=== PATIENT | female | born 1940 | race Caucasian/White ===

== ENCOUNTER 2017-08-07 23:48 | Inpatient (IN) | payer OTHER ==
[~2017-08-07] VITALS: Ht 157.5 cm; Wt 81.1 kg
[~2017-08-07 23:48] MED LIST: ACETAMINOPHEN325 M1 PO; ALTOPREV40 MG PO; APAP500 PO; APAP650 PO; CALCIUM 600 +1 EAC5 PO; COLACE 100 MG100 MG PO; ESTRACE0.5 MG PO; GLIPIZIDE ER5 MG PO; GLUCOPHAGE1000 MG PO; GLUCOSAMINE HC500 MG PO; GLUCOTROL5 MG PO; HYDROCHLOROTHIA25 M2 PO; HYDROXYCHLOROQ200 M1 PO; INTEGRA; INTEGRA CAPSUL1 EACH PO; IRON SULFATE PO; IRON325 PO; Integra PO; LIPITOR10 MG PO; LISINOPRIL20 MG PO; LOVASTAT40 PO; MULTIVITAMIN W1 EAC5 PO; MULTIVITAMINS PO; PRILOSEC 20 MG20 MG PO; PRINIVIL20 MG PO; PRINZIDE 20-121 EACH PO; PROTONIX40 M2 PO; STOOL SOFTENER100 MG PO; VITAMIN B-12100 MC1; VITAMIN D3400 UNIT; ZESTORETIC 20-1 EAC3 PO; ZESTORETIC 20-1 EACH PO; [UNRECOGNIZED DRUG - OTHER] PO
[2017-08-07 23:57] VITALS: BP 126/59
[2017-08-08 00:20] LABS: URINE BLOOD NEGATIVE (Negative); URINE CLARITY CLEAR; URINE COLOR YELLOW; URINE GLUCOSE-RANDOM NEGATIVE (Negative); URINE KETONES NEGATIVE (Negative); URINE LEUKOCYTES-REFLEX NEGATIVE (Negative); URINE NITRITE-REFLEX NEGATIVE (Negative); URINE PROTEIN 1+ (Negative); URINE SPECIFIC GRAVITY >= 1.030 (1.005-1.030); URINE UROBILINOGEN 0.2 E.U./dl (0.2-1.0)
[2017-08-08 00:24] LABS: ICTOTEST (BILI CONFIRMATORY) Negative (Negative); URINE BILIRUBIN 1+ (Negative)
[2017-08-08 00:24] LABS: ABSOLUTE LYMPHOCYTES 0.8 thou/uL (0.8-5.3); BASOPHILS 0.5 %; HEMOGLOBIN 13.1 gm/dL (12.0-15.0); POLYS 80.8 %
[2017-08-08 00:28] LABS: ABSOLUTE MONOCYTES 0.3 thou/uL (0.0-1.2); EOSINOPHILS 0.7 %; HEMATOCRIT 40.4 % (37.0-47.0); LYMPHOCYTES 12.5 %; MCH 27.4 pg (26.0-34.0); MCHC 32.4 g/dL (28.0-37.0); MCV 84.8 fL (80.0-100.0); MONOCYTES 5.5 %; MPV 8.7 fl. (7.2-11.1); NUCLEATED RBCS 0 /100WBC; PLATELET COUNT* 218 thou/uL (150-400); RBC 4.77 mil/uL (4.20-5.00); RDW-CV 15.2 % (10.5-14.5); WBC 6.2 thou/uL (4.0-11.0)
[2017-08-08 00:32] LABS: CALCIUM 10.5 mg/dL (8.5-10.1); CREATININE 1.7 mg/dL (0.6-1.3)
[2017-08-08 00:37] LABS: ALBUMIN 4.2 g/dL (3.4-5.0); TOTAL BILIRUBIN 0.4 mg/dL (<0.1-1.0); TOTAL PROTEIN 7.9 g/dL (6.4-8.2)
[2017-08-08] MEDS ORDERED: HYDROXYCHLOROQ200 M1 PO (01:11)
[2017-08-08] MEDS ORDERED: GLUCOTROL5 MG PO (01:14)
[2017-08-08] MEDS ORDERED: ZESTORETIC 20-1 EAC3 PO (01:15)
[2017-08-08] MEDS ORDERED: IRON325 PO (01:16)
[2017-08-08] MEDS ORDERED: VITAMIN D1000 UNI1 PO (01:17)
[2017-08-08 03:35] VITALS: BP 113/51
[2017-08-08 03:45] VITALS: BP 133/62
--- NOTE | 2017-08-08 07:33 | NUR ---
Admit at 0340. She is alert and oriented x 4. She has partial small obstruction. NG to LIS in L nares. She did have vomiting and nausea in ED but hasn't since arrival to floor. She did have pain med x 1 at 0503 and she has slept since then.
[2017-08-08 08:09] VITALS: BP 101/60
--- NOTE | 2017-08-08 16:35 | NUR ---
ASSUMED CARE OF PATIENT AFTER MORNING REPORT. ALERT AND ORIENTED X4. ASSESSMENT COMPLETED AND CHARTED. VSS ON ROOM AIR. PATIENT HAS HAD NO COMPLAINTS OF PAIN OR NAUSEA THIS SHIFT. NG TUBE REMIANS IN PLACE ON INTERMITTENT SUCTION. FLUIDS INFUSING ORDERED. HOURLY ROUNDS HAVE BEEN MAINTAINED. CALL LIGHT IS WITHIN REACH. NURSING WILL CONTINUE TO MONITOR.
[2017-08-08 20:00] VITALS: BP 142/75
[2017-08-09 04:52] LABS: ABSOLUTE EOSINOPHILS 0.2 thou/uL (0.0-0.7); ABSOLUTE LYMPHOCYTES 0.7 thou/uL (0.8-5.3); ABSOLUTE MONOCYTES 0.4 thou/uL (0.0-1.2); ABSOLUTE NEUTROPHILS 2.6 thou/uL (1.6-8.1); BASOPHILS 0.4 %; HEMATOCRIT 33.5 % (37.0-47.0); LYMPHOCYTES 17.3 %; MCH 27.1 pg (26.0-34.0); MCHC 31.9 g/dL (28.0-37.0); MCV 84.9 fL (80.0-100.0); MONOCYTES 11.1 %; MPV 8.3 fl. (7.2-11.1); NUCLEATED RBCS 0 /100WBC; PLATELET COUNT* 153 thou/uL (150-400); POLYS 67.2 %; RBC 3.95 mil/uL (4.20-5.00); RDW-CV 14.8 % (10.5-14.5); WBC 3.8 thou/uL (4.0-11.0)
[2017-08-09 04:55] LABS: HEMOGLOBIN 10.7 gm/dL (12.0-15.0)
[2017-08-09 04:59] LABS: CALCIUM 9.3 mg/dL (8.5-10.1); CREATININE 1.2 mg/dL (0.6-1.3); TOTAL BILIRUBIN 0.4 mg/dL (<0.1-1.0); TOTAL PROTEIN 5.9 g/dL (6.4-8.2)
--- NOTE | 2017-08-09 05:18 | NUR ---
ASSUMED PATIENT CARE AT 1900. PATIENT ALERT AND ORIENTED TIMES FOUR. NG IN PLACE TO INTERMITTENT SUCTION. STATES THAT SHE "FEELS SO MUCH BETTER NOW" NO COMPLAINTS OF NAUSEA THROUGH SHIFT. IV PATENT AND FLUIDS INFUSING. REMAINS NPO STATUS. ABLE TO AMBULATE WITH STB ASSISST TO THE BSC. 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
[2017-08-09 08:30] VITALS: BP 132/51
--- NOTE | 2017-08-09 15:23 | NUR ---
CM SPOKE TO THE PATIENT TO DISCUSS HOME SITUATION, DISHCARGE PLANNING, AND TO INFORM OF THE ROLE OF CM. PATIENT ALERT, ORIENTED, AND INDEPENDENT WITH ADL'S. PATIENT DRIVES. PATIENT RESIDES AT HOME WITH AND GRANDSON. DENISE OWNS 0 DME. PATIENT HAS NO HX OF HH OR SNF. PATIENT PLANS TO RETURN HOEM AT D/C. CM WILL REMAIN AVAILABLE TO ASSIST AND FOLLOW NEEDED.
--- NOTE | 2017-08-09 18:15 | NUR ---
PATIENT REMAINED ALERT AND ORIENTED X'S 4. VITAL SIGNS AND SPO2 STABLE. IV CLEAN, FLUIDS INFUSING. REMAINED NPO. NURSE DID CLAMP OF NG TUBING TO GIVE PATIENT MORNING PO MEDS. PATIENT TOLERATED WITHOUT NAUSEA AND VOMITING. VOIDED WITHOUT ISSUE. BLOOD SUGARS WELL CONTROLLED WITH BG MEDS. COMPLETED HOURLY ROUNDING. CALL LIGHT WITHIN REACH. WILL CONTINUE TO MONITOR.
[2017-08-09 18:29] VITALS: BP 127/56
[2017-08-09 20:00] VITALS: BP 144/69
--- NOTE | 2017-08-10 04:06 | NUR ---
PATIENT RESTING QUIETLY ON HOURLY ROUNDS. DENIES PAIN OR NAUSEA. NG PATENT TO LIS. RILEYO. VITALS STABLE ON ROOM AIR. VOIDING ADEQUATELY PER BSC. WILL CONTINUE TO MONITOR.
[2017-08-10 04:19] LABS: ABSOLUTE EOSINOPHILS 0.1 thou/uL (0.0-0.7); ABSOLUTE LYMPHOCYTES 0.6 thou/uL (0.8-5.3); ABSOLUTE MONOCYTES 0.6 thou/uL (0.0-1.2); ABSOLUTE NEUTROPHILS 3.4 thou/uL (1.6-8.1); BASOPHILS 0.4 %; EOSINOPHILS 2.1 %; HEMATOCRIT 33.5 % (37.0-47.0); HEMOGLOBIN 11.1 gm/dL (12.0-15.0); LYMPHOCYTES 13.4 %; MCH 27.8 pg (26.0-34.0); MCHC 33.1 g/dL (28.0-37.0); MCV 84.1 fL (80.0-100.0); MONOCYTES 11.7 %; MPV 8.2 fl. (7.2-11.1); NUCLEATED RBCS 0 /100WBC; PLATELET COUNT* 147 thou/uL (150-400); POLYS 72.4 %; RBC 3.98 mil/uL (4.20-5.00); RDW-CV 14.4 % (10.5-14.5); WBC 4.7 thou/uL (4.0-11.0)
[2017-08-10 04:45] LABS: CALCIUM 9.5 mg/dL (8.5-10.1); CREATININE 1.1 mg/dL (0.6-1.3); POTASSIUM 3.8 mmol/L (3.5-5.1); TOTAL BILIRUBIN 0.5 mg/dL (<0.1-1.0); TOTAL PROTEIN 5.6 g/dL (6.4-8.2)
[2017-08-10 08:15] VITALS: BP 137/74
[2017-08-10 11:26] VITALS: BP 144/62
[2017-08-10 11:55] LABS: MAGNESIUM 1.8 mg/dL (1.8-2.4); POTASSIUM 3.9 mmol/L (3.5-5.1)
[2017-08-10 15:42] VITALS: BP 129/61
[2017-08-10 23:00] VITALS: BP 144/64
[2017-08-11 05:12] LABS: ABSOLUTE EOSINOPHILS 0.1 thou/uL (0.0-0.7); ABSOLUTE LYMPHOCYTES 0.6 thou/uL (0.8-5.3); ABSOLUTE MONOCYTES 0.6 thou/uL (0.0-1.2); ABSOLUTE NEUTROPHILS 3.3 thou/uL (1.6-8.1); BASOPHILS 0.4 %; EOSINOPHILS 2.1 %; HEMATOCRIT 30.4 % (37.0-47.0); HEMOGLOBIN 10.2 gm/dL (12.0-15.0); LYMPHOCYTES 12.1 %; MCH 27.6 pg (26.0-34.0); MCHC 33.6 g/dL (28.0-37.0); MCV 82.3 fL (80.0-100.0); MONOCYTES 13.9 %; MPV 8.7 fl. (7.2-11.1); NUCLEATED RBCS 0 /100WBC; PLATELET COUNT* 134 thou/uL (150-400); POLYS 71.5 %; RBC 3.69 mil/uL (4.20-5.00); RDW-CV 13.9 % (10.5-14.5); WBC 4.6 thou/uL (4.0-11.0)
[2017-08-11 05:31] LABS: ALBUMIN 2.9 g/dL (3.4-5.0); CALCIUM 9.4 mg/dL (8.5-10.1); POTASSIUM 3.6 mmol/L (3.5-5.1); TOTAL BILIRUBIN 0.5 mg/dL (<0.1-1.0); TOTAL PROTEIN 5.4 g/dL (6.4-8.2)
--- NOTE | 2017-08-11 06:39 | NUR ---
RESTED QUIETLY THROUGHOUT NIGHT. NO C/O N/V OR PAIN. N/G CLAMPED AT THIS TIME. UP AD BINU IN ROOM TO BEDSIDE COMMODE WITHOUT DIFFICULTY. IVF INFUSING WITHOUT DIFFICULTY. REMAINS NPO AT THIS TIME. CALL LIGHT WITHIN REACH.
[2017-08-11 08:30] VITALS: BP 136/72
[2017-08-11 15:41] VITALS: BP 137/70
--- NOTE | 2017-08-11 16:24 | NUR ---
PATIENT REMAINS ALERT AND ORIENTED. DENIES PAIN OR NAUSEA. NG REMOVED TODAY. TOLERATING REGULAR DIET. AMBULATING AD BINU. BM THIS AM. VOIDING PER TOILET. CALL LIGHT WITHIN REACH. WILL CONTINUE TO MONITOR.
[2017-08-11 21:00] VITALS: BP 134/49
[2017-08-12 04:47] LABS: ABSOLUTE EOSINOPHILS 0.2 thou/uL (0.0-0.7); ABSOLUTE LYMPHOCYTES 0.6 thou/uL (0.8-5.3); ABSOLUTE MONOCYTES 0.7 thou/uL (0.0-1.2); ABSOLUTE NEUTROPHILS 2.9 thou/uL (1.6-8.1); BASOPHILS 0.4 %; EOSINOPHILS 3.9 %; HEMATOCRIT 29.7 % (37.0-47.0); HEMOGLOBIN 9.9 gm/dL (12.0-15.0); LYMPHOCYTES 13.9 %; MCH 27.5 pg (26.0-34.0); MCHC 33.4 g/dL (28.0-37.0); MCV 82.2 fL (80.0-100.0); MONOCYTES 16.1 %; MPV 8.4 fl. (7.2-11.1); NUCLEATED RBCS 0 /100WBC; PLATELET COUNT* 129 thou/uL (150-400); POLYS 65.7 %; RBC 3.62 mil/uL (4.20-5.00); RDW-CV 13.7 % (10.5-14.5); WBC 4.3 thou/uL (4.0-11.0)
--- NOTE | 2017-08-12 04:48 | NUR ---
ALERT AND ORIENTED X4. NO C/O N/V OR PAIN. UP AD BINU IN ROOM WITHOUT DIFFICULTY. EATTING CARB CONTROL DIET WITHOUT DIFFICULTY. CALL LIGHT WITHIN REACH. WILL CONTINUE TO MONITOR.
[2017-08-12 05:06] LABS: ALBUMIN 2.8 g/dL (3.4-5.0); CALCIUM 9.2 mg/dL (8.5-10.1); CREATININE 1.1 mg/dL (0.6-1.3); POTASSIUM 3.5 mmol/L (3.5-5.1); TOTAL BILIRUBIN 0.6 mg/dL (<0.1-1.0); TOTAL PROTEIN 5.4 g/dL (6.4-8.2)
[2017-08-12 08:00] VITALS: BP 117/66
[2017-08-12 09:43] VITALS: BP 117/66
[2017-08-12 12:50] VITALS: BP 117/66
[2017-08-12] MEDS ORDERED: TYLENOL325 MG PO (13:03)
[2017-08-12 14:23] VITALS: BP 117/66
--- NOTE | 2017-08-12 14:28 | NUR ---
PATIENT LEFT UNIT AT 1400. ALERT AND ORIENTED X4. UP AD BINU IN ROOM. DENIES PAIN AND NAUSEA. IV DISCONTINUED. ALL PERSONAL ITEMS LEFT WITH PATIENT. DISCHARGE INSTRUCTIONS, PRESCRIPTIONS AND NEW MEDICAION INFORMATION SENT WITH PATIENT. VITAL SIGNS STABLE ON ROOM AIR. HOURLY ROUNDS HAVE BEEN MAINTAINED THROUGHOUT SHIFT. TOLERATING CARB CONTROL DIET. LEFT WIT SPOUSE VIA CAR.
--- NOTE | 2017-08-15 14:51 | CON ---
[address] [address] CONSULTATION Name: BRUCE NELSON Room: [address] IN .R.#: [id number] Admission: 08/08/17 Attend Phys: Rios Faria Discharge: 08/12/17 Date of : 40 Report #: [id number] THIS REPORT FOR: //name// CC: Yolande Larsen DICTATED BY: Astrid Patel [facility] DATE OF SERVICE: 08/08/2017 Please note at the time of this dictation, the patient was seen and physically examined by myself. REASON FOR CONSULTATION: Small-bowel obstruction. HISTORY OF PRESENT ILLNESS: This 76-year-old female presented to the Emergency Room with chief complaint of starting to have some abdominal pain. She states earlier in the morning, she noticed a little bit of discomfort, but she was able to eat breakfast and lunch and then she even ate a little bit of dinner, but she kept noticing that her stomach just did not feel right and that she was feeling a little bit more distended. It was until around after 9:00, last evening that she started developing nausea and vomiting. She states that she denied any bright red blood or any melena from her emesis. She states she has had this happen before where she has had a small-bowel obstruction and this is exactly identical but not as bad as it has been done in the past, prompting her to come in to be seen in the Emergency Room. She had an NG tube placed around 3:00 this morning and has only had 250 mL out thus far and she is feeling significantly better. The patient underwent an EGD back in 2012 and had small hiatal hernia. She also had a colonoscopy that showed moderate sigmoid diverticulosis. She states she did have a bowel movement yesterday morning as well without any issues. ALLERGIES: ASPIRIN. MEDICATIONS: From home include vitamin D, Glucotrol, iron, Zestoretic and Plaquenil. PAST MEDICAL HISTORY: Includes history of small bowel obstructions, type 2 diabetes, hypertension, history of an AV malformation and history of blood transfusions. PAST SURGICAL HISTORY: Small bowel resections. FAMILY HISTORY: [place] [address] CONSULTATION Name: BRUCE NELSON Room: [address]#: [id number] Admission: 08/08/17 Attend Phys: Rios Faria Discharge: 08/12/17 Date of : 40 Report #: [id number] SOCIAL HISTORY: She lives with her . Denies any alcohol, tobacco or illegal drug use at this time. REVIEW OF SYSTEMS: Twelve-point review of systems is essentially negative except what is mentioned in the HPI. PHYSICAL EXAMINATION: VITAL SIGNS: Temperature 36.9, pulse 87, respirations 18, blood pressure 111/60. HEART: Regular rate and rhythm. LUNGS: Clear. ABDOMEN: Soft, nondistended. Bowel sounds are present, but slightly hypoactive in all 4 quadrants. LABORATORY DATA: Hemoglobin 13.1, hematocrit 40.4, white count is 6.2, platelets 218. Sodium 136, potassium 4, chloride 110, CO2 24, BUN is 30, creatinine 1.7, GFR is 29, glucose is 283. LFTs are all normal. CT showed diffuse fatty liver with mildly dilated small bowel loops diffusely, small bowel to 2.8 cm and fluid noted in the right colon and in the transverse with moderate distention noted with moderate stool. IMPRESSION: 1. Abdominal pain. 2. Nausea and vomiting, improved. 3. Small-bowel obstruction. PLAN: 1. NG to intermittent low suction. 2. N.p.o. 3. Abdominal x-ray in the a.m. 4. Treat conservatively and further recommendations to be made tomorrow. Thank you for allowing us to participate in this patient's care. Please do not hesitate to call with any questions in regard to this consult. ADDENDUM: I have personally seen and examined the patient and reviewed labs and imaging. 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 She also has had hernia repair in the past. She reports that she ate breakfast yesterday, but after breakfast started developing abdominal pain and distention. She was admitted with partial small-bowel obstruction. NG tube has been in place to low grade intermittent suction. The patient reports that she is feeling well. Denies any abdominal pain, nausea, and vomiting. Her abdomen is also soft. We will follow this with a KUB tomorrow. If the patient is doing [address] [place] [address] CONSULTATION Name: BRUCE NELSON Room: [address] IN [facility]#: [id number] Admission: 08/08/17 Attend Phys: Rios Faria Discharge: 08/12/17 Date of : 40 Report #: [id number] well, we may be able to pull the NG and advance diet tomorrow. The patient is agreeable with the plan. <ELECTRONICALLY SIGNED> By: Mercedes Martinez MD 08/15/17 1451 [id number] Martinez MD /nt
--- NOTE | 2017-08-15 14:51 | CON ---
[address] [address] CONSULTATION Name: BRUCE NELSON Room: [address] IN .R.#: [id number] Admission: 08/08/17 Attend Phys: Rios Faria Discharge: 08/12/17 Date of : 40 Report #: [id number] THIS REPORT FOR: //name// CC: Yolande Larsen DATE OF SERVICE: 08/08/2017 ADDENDUM: I have personally seen and examined the patient and reviewed labs and imaging. 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 She also has had hernia repair in the past. She reports that she ate breakfast yesterday, but after breakfast started developing abdominal pain and distention. She was admitted with partial small-bowel obstruction. NG tube has been in place to low grade intermittent suction. The patient reports that she is feeling well. Denies any abdominal pain, nausea, and vomiting. Her abdomen is also soft. We will follow this with a KUB tomorrow. If the patient is doing well, we may be able to pull the NG and advance diet tomorrow. The patient is agreeable with the plan. <ELECTRONICALLY SIGNED> By: Mercedes Martinez MD 08/15/17 1451 [id number] [id number] Martinez MD /nt
== END 2017-08-12 14:00 | disposition home or self-care (01) | DRG 388 ==
LOC: M.ERS 23:48 → M.TBA-ER 08-08 02:21 → M.ORTHSURG 08-08 02:21
PROVIDERS: Emergency Medicine; ADMIT Internal Medicine
DX: K56.609 Unspecified intestinal obstruction, unspecified as to partial versus complete obstruction (principal); N17.0 Acute kidney failure with tubular necrosis; R65.11 Systemic inflammatory response syndrome (SIRS) of non-infectious origin with acute organ dysfunction; E11.9 Type 2 diabetes mellitus without complications; I10 Essential (primary) hypertension; D50.9 Iron deficiency anemia, unspecified; K57.30 Diverticulosis of large intestine without perforation or abscess without bleeding; M06.9 Rheumatoid arthritis, unspecified; E21.3 Hyperparathyroidism, unspecified; Z90.49 Acquired absence of other specified parts of digestive tract; Z88.6 Allergy status to analgesic agent; Z79.899 Other long term (current) drug therapy; Z90.89 Acquired absence of other organs

== ENCOUNTER 2018-08-17 20:17 | Emergency (ER) | payer OTHER ==
[~2018-08-17] VITALS: Ht 157.5 cm; Wt 76.2 kg
[~2018-08-17 20:17] MED LIST changes: +TYLENOL325 MG PO; +VITAMIN D1000 UNI1 PO
[2018-08-17] MEDS ORDERED: GLUCOSAMINE HC500 MG (20:38)
[2018-08-17] MEDS ORDERED: PROBIOTIC1 EAC1 (20:39)
[2018-08-17 21:30] LABS: ABSOLUTE EOSINOPHILS 0.1 thou/uL (0.0-0.7); ABSOLUTE LYMPHOCYTES 0.5 thou/uL (0.8-5.3); ABSOLUTE MONOCYTES 0.5 thou/uL (0.0-1.2); ABSOLUTE NEUTROPHILS 2.4 thou/uL (1.6-8.1); BASOPHILS 0.7 %; EOSINOPHILS 2.5 %; HEMATOCRIT 27.4 % (37.0-47.0); MCH 27.9 pg (26.0-34.0); MCV 84.5 fL (80.0-100.0); MONOCYTES 13.2 %; MPV 8.2 fl. (7.2-11.1); NUCLEATED RBCS 0 /100WBC; PLATELET COUNT* 166 thou/uL (150-400); POLYS 68.6 %; RBC 3.24 mil/uL (4.20-5.00); RDW-CV 14.9 % (10.5-14.5); WBC 3.5 thou/uL (4.0-11.0)
[2018-08-17 22:41] LABS: ANION GAP 8 mmol/L (7-16); BUN 25 mg/dL (7-18); CALCIUM 9.9 mg/dL (8.5-10.1); CHLORIDE 105 mmol/L (98-107); CO2 25 mmol/L (21-32); CREATININE 1.4 mg/dL (0.6-1.3); GLUCOSE 190 mg/dL (70-99); POTASSIUM 4.6 mmol/L (3.5-5.1); SODIUM 138 mmol/L (136-145); TROPONIN-I LEVEL <0.06 ng/mL (<0.06)
[2018-08-17 22:43] LABS: ALBUMIN 3.5 g/dL (3.4-5.0); ALKALINE PHOSPHATASE 89 U/L (46-116); NT-PRO BRAIN NAT PEPTIDE 71 pg/mL (<300); SGOT 16 U/L (15-37); SGPT 19 U/L (30-65); TOTAL BILIRUBIN 0.2 mg/dL (<0.1-1.0); TOTAL PROTEIN 6.4 g/dL (6.4-8.2)
[2018-08-17 22:57] VITALS: BP 129/63
--- NOTE | 2018-08-18 09:16 | EKG ---
[place] [address] ELECTROCARDIOGRAM REPORT Name: BRUCE NELSON Room: [facility]#: [id number] Admission: 08/17/18 Attend Phys: Discharge: 08/17/18 Date of : 40 Report #: [id number] THIS REPORT FOR: //name// [facility] ED Test Date: 2018-08-17 Test Time: 21:34:46 Pat Name: BRUCE NELSON Department: Room: Gender: F Family Practice Nurse Practitioner: Julio SALAZAR : 1940 Requested By: Maisha Sosa Order Number: [id number] MD: Kaushik Warren Measurements Intervals Alva Rate: 61 P: 41 CT: 244 QRS: 7 QRSD: 87 T: 40 QT: 382 QTc: 385 Interpretive Statements Sinus rhythm Prolonged CT interval Low voltage, precordial leads Compared to ECG 07/27/2015 04:06:26 Low QRS voltage now present Electronically Signed On 08-18-2018 9:15:50 CDT by Kaushik Warren [email or web address] <ELECTRONICALLY SIGNED> By: Kaushik Warren MD, [facility] [id number] [phone] Kaushik Warren MD, [facility] /EPI
== END 2018-08-17 22:59 | disposition home or self-care (01) ==
LOC: M.ERS 20:17
PROVIDERS: Nurse Practitioner Family
DX: D50.0 Iron deficiency anemia secondary to blood loss (chronic) (principal); K92.2 Gastrointestinal hemorrhage, unspecified; I10 Essential (primary) hypertension; E11.9 Type 2 diabetes mellitus without complications; Z88.6 Allergy status to analgesic agent